=== PATIENT | male | born 1985 | race African-American/Black ===

== ENCOUNTER 2022-12-24 02:06 | Emergency (ER) | payer OTHER ==
[2022-12-24 02:19] VITALS: BP 131/77; PULSE 79; RESP 18; BMI 27.1
[2022-12-24 02:47] VITALS: TEMP 98.1
[2022-12-24] MEDS ORDERED: ACETAMINOPHEN 500 MG TABLET (FP) PO ONE (03:47)
[2022-12-24] MEDS ORDERED: KETOROLAC TROMETHAMINE 30 MG/1 ML VIAL IM ONE (03:47)
[2022-12-24] MEDS ORDERED: LIDOCAINE 5% TOPICAL PATCH TP ONE (03:47)
[2022-12-24] MEDS ORDERED: KETOROLAC TROMETHAMINE 30 MG/1 ML VIAL ONE (03:54)
[2022-12-24] MEDS ORDERED: ACETAMINOPHEN 500 MG TABLET (FP) ONE (03:54)
[2022-12-24] MEDS ORDERED: LIDOCAINE 5% TOPICAL PATCH ONE (03:54)
[2022-12-24] MEDS ORDERED: METHOCARBAMOL 750 MG TAB PO ONE (05:09)
[2022-12-24] MEDS ORDERED: METHOCARBAMOL 500 MG TABLET ONE ×2 (05:11)
[2022-12-24] MEDS ORDERED: LIDOCAINE PATCH REMOVAL MC ONE (16:00)
== END 2022-12-24 05:44 | disposition home or self-care (01) ==
LOC: JER 02:06
PROC: 3E0233Z Introduction of Anti-inflammatory into Muscle, Percutaneous Approach (ICD-10-PCS; principal; 2022-12-24)
DX: M62.830 Muscle spasm of back (principal); M54.50 Low back pain, unspecified
CPT/HCPCS: 99284-25